=== PATIENT | female | born 1985 | race Caucasian/White ===

== ENCOUNTER 2017-10-14 00:54 | Emergency (ER) | payer BC ==
[2017-10-14 02:57] LABS: ABS Basophils 0.1 10^3/ul (0-0.2); ABS Eosinophils 0.1 10^3/ul (0-0.6); ABS Lymphocytes 1.7 10^3/ul (1.0-4.8); ABS Monocytes 0.6 10^3/ul (0-0.8); ABS Neutrophils 11.3 10^3/ul (1.5-7.7); ABS Nucleated RBC 0 10^3/ul; Eosinophil % 1.1 % (0-6); Hematocrit 42 % (35-47); Hemoglobin 14.1 g/dl (12.0-16.0); Lymphocyte % 12.4 % (25-47); Mean Corpuscular HGB Conc 34 g/dl (31-36); Mean Corpuscular Hemoglobin 33 pg (27-31); Mean Corpuscular Volume 96 fL (80-97); Mean Platelet Volume 9 um3 (7.4-10.4); Nucleated Red Blood Cells % 0; Platelet Count 202 10^3/ul (150-450); Red Blood Count 4.32 10^6/ul (4.0-5.4); Red Cell Distribution Width 15 % (10.5-15); White Blood Count 13.7 10^3/ul (3.5-10.8)
[2017-10-14 03:17] LABS: INR 0.97 (0.77-1.02)
[2017-10-14 05:19] VITALS: BP 112/74
--- NOTE | 2017-10-14 06:47 | ED ---
Jasmin Britt Thomas, scribed for Bertrand Horton on 10/14/17 at 0226 . Syncope/Near Syncope - HPI Summary HPI Summary: The patient is a 32 year old female presenting to the emergency department status post two syncopal episodes that occurred when she was showering prior to arrival. The shower was hot. The patient denies head trauma. She has a history of similar syncope. She denies a history of seizures, headache, head trauma, and edema. - History Of Current Complaint Chief Complaint: EDSyncope Time Seen by Provider: 10/14/17 02:13 Hx Obtained From: Patient Onset/Duration: Resolved Context: Unwitnessed Activity At Onset: Other - Showering Associated Head Trauma: No Alleviating Factor(s): Spontaneous Resolution Associated Signs And Symptoms: Other - NEGATIVE: headache, head trauma, edema Related History: Similar Episode/Dx as - prior syncope - Allergies/Home Medications Allergies/Adverse Reactions: Allergies Allergy/AdvReac Type Severity Reaction Status Date / Time No Known Allergies Allergy Verified 08/27/16 10:38 PMH/Surg Hx/FS Hx/Imm Hx Endocrine/Hematology History: Denies: Hx Diabetes Cardiovascular History: Denies: Hx Hypertension, Hx Pacemaker/ICD History: Denies: Hx Renal Disease Musculoskeletal History: Reports: Hx Scoliosis Sensory History: Denies: Hx Hearing Aid Neurological History: Reports: Other Neuro Impairments/Disorders - Hx syncope ( no history seizures) Psychiatric History: Denies: Hx Panic Disorder - Surgical History Surgery Procedure, Year, and Place: 2010 ACL LEFT KNEE SURGERY- 2 MONTHS LATER WENT IN AND CLEANED IT UP. 2013-C SECTION Infectious Disease History: No Infectious Disease History: Denies: Traveled Outside the [place] in Last 30 Days - Family History Known Family History: Negative: Other - syncope - Social History Alcohol Use: None Hx Substance Use: No Substance Use Type: Reports: None Hx Tobacco Use: Yes Smoking Status (MU): Current Every Day Smoker Review of Systems Negative: Fever Negative: Other - head trauma Positive: Syncope. Negative: Headache All Other Systems Reviewed And Are Negative: Yes Physical Exam - Summary Physical Exam Summary: Appearance: Well appearing, no pain distress Skin: warm, dry, reflects adequate perfusion Head/face: normal Eyes: EOMI, JOHNATHAN ENT: normal Neck: supple, non-tender Respiratory: CTA, breath sounds present Cardiovascular: RRR, pulses symmetrical Abdomen: non-tender, soft Bowel: present Musculoskeletal: normal, strength/ROM intact Neuro: normal, sensory motor intact, A&Ox3 Triage Information Reviewed: Yes Vital Signs On Initial Exam: Initial Vitals Temp Pulse Resp BP Pulse Ox 97.8 F 71 14 102/50 100 10/14/17 00:57 10/14/17 00:57 10/14/17 00:57 10/14/17 00:57 10/14/17 00:57 Vital Signs Reviewed: Yes Diagnostics - Vital Signs Vital Signs Temp Pulse Resp BP Pulse Ox 10/14/17 00:57 97.8 F 71 14 102/50 100 - Laboratory Lab Results: Lab Results 10/14/17 10/14/17 10/14/17 Range/Units 02:46 02:46 02:46 WBC 13.7 H (3.5-10.8) 10^3/ul RBC 4.32 (4.0-5.4) 10^6/ul Hgb 14.1 (12.0-16.0) g/dl Hct 42 (35-47) % MCV 96 (80-97) fL MCH 33 H (27-31) pg MCHC 34 (31-36) g/dl RDW 15 (10.5-15) % Plt Count 202 (150-450) 10^3/ul MPV 9 (7.4-10.4) um3 Neut % (Auto) 82.0 (38-83) % Lymph % (Auto) 12.4 L (25-47) % [place] % (Auto) 4.1 (1-9) % Eos % (Auto) 1.1 (0-6) % Baso % (Auto) 0.4 (0-2) % Absolute Neuts (auto) 11.3 H (1.5-7.7) 10^3/ul Absolute Lymphs (auto) 1.7 (1.0-4.8) 10^3/ul Absolute Monos (auto) 0.6 (0-0.8) 10^3/ul Absolute Eos (auto) 0.1 (0-0.6) 10^3/ul Absolute Basos (auto) 0.1 (0-0.2) 10^3/ul Absolute Nucleated RBC 0 10^3/ul Nucleated RBC % 0 INR (Anticoag Therapy) 0.97 (0.77-1.02) APTT 27.6 (26.0-36.3) seconds Sodium 132 L (133-145) mmol/L Potassium 3.8 (3.5-5.0) mmol/L Chloride 102 (101-111) mmol/L Carbon Dioxide 25 (22-32) mmol/L Anion Gap 5 (2-11) mmol/L BUN 11 (6-24) mg/dL Creatinine 0.58 (0.51-0.95) mg/dL Est GFR ( Amer) 153.0 (>60) Est GFR (Non-Af Amer) 119.0 (>60) BUN/Creatinine Ratio 19.0 (8-20) Glucose 102 H (70-100) mg/dL Calcium 9.4 (8.6-10.3) mg/dL Total Bilirubin 0.30 (0.2-1.0) mg/dL AST 15 (13-39) U/L ALT 10 (7-52) U/L Alkaline Phosphatase 48 (34-104) U/L Troponin I 0.00 (<0.04) ng/mL Total Protein 6.8 (6.4-8.9) g/dL Albumin 4.0 (3.2-5.2) g/dL Globulin 2.8 (2-4) g/dL Albumin/Globulin Ratio 1.4 (1-3) Beta HCG, Quant 0.60 mIU/mL Result Diagrams: 10/14/17 02:46 10/14/17 02:46 Lab Statement: Any lab studies that have been ordered have been reviewed, and results considered in the medical decision making process. - Radiology CXR Xray Interpretation: No Acute Changes - Negative CXR Radiology Interpretation Completed By: ED Physician - CT CT Brain CT Interpretation: No Acute Changes - Normal exam. Dr. Horton has reviewed this report. CT Interpretation Completed By: Radiologist - EKG 01:21 Cardiac Rate: NL EKG Rhythm: Sinus Rhythm - at 74 BPM EKG Interpretation: No acute changes. Course/Dx Assessment/Plan: The patient is a 32 year old female presenting to the emergency department status post two syncopal episodes that occurred when she was showering prior to arrival. Bloodwork was obtained. CXR is negative. CT Brain is negative. EKG is sinus rhythm. The patient is diagnosed with syncope. The patient is instructed to follow up with neurology. - Diagnoses Differential Diagnosis/HQI/PQRI: Positive: Dysrhythmia, Vasovagal Episode Provider Diagnoses: Syncope Discharge - Discharge Plan Condition: Stable Disposition: HOME Patient Education Materials: Syncope (ED) Referrals: Lady Duran MD [Medical Doctor] - 3 Days Additional Instructions: Follow up with Dr. Duran, neurology, in three days. Return to the emergency department for any new or worsening symptoms. The documentation as recorded by the Jasmin mace Thomas accurately reflects the service I personally performed and the decisions made by Clifford mejia Emmanuel.
--- NOTE | 2017-10-14 08:14 | RAD ---
INDICATION: Syncope COMPARISON: None. TECHNIQUE: Single AP portable view of the chest was obtained. FINDINGS: Image quality is compromised due to the relative inferiority of a portable chest x-ray. The heart and mediastinum exhibit normal size and contour. The lungs are grossly clear. There is no evidence of a large pleural effusion. Visualized bones are normal for the patient's age. IMPRESSION: No radiographic evidence for acute cardiopulmonary abnormality on this portable chest x-ray.
--- NOTE | 2017-10-14 08:15 | RAD ---
Indication: Syncope. CT of the brain was performed without IV contrast. Ventricular structures are midline. No midline shift is noted. The extraction spaces are unremarkable. There is no evidence of intracranial mass or hemorrhage. No other high or low density lesions are identified. Mastoid air cells and paranasal sinuses are otherwise unremarkable. IMPRESSION: No intracranial mass or hemorrhage is noted.
== END 2017-10-14 05:18 | disposition home or self-care (01) ==
LOC: ED 00:54
DX: R55 Syncope and collapse (principal); Z32.02 Encounter for pregnancy test, result negative; M41.9 Scoliosis, unspecified; F17.210 Nicotine dependence, cigarettes, uncomplicated
CPT/HCPCS: 36415; 70450; 71045; 80053; 84484; 84702; 85025; 85610; 85730; 93005; 99282